=== PATIENT | female | born 1970 | race Caucasian/White ===

== ENCOUNTER 2017-02-16 17:32 | Emergency (ER) | payer OTHER ==
[2017-02-16 17:56] VITALS: RESP 16
[2017-02-16] MEDS ORDERED: TDAP ADULT 0.5 ML INJ (BOOSTRIX) IM ONE (17:57)
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
[2017-02-16 20:22] VITALS: BP 119/78; PULSE 65; TEMP 97.7; O2SAT 96
== END 2017-02-16 20:21 | disposition home or self-care (01) ==
DX: S52.124A Nondisplaced fracture of head of right radius, initial encounter for closed fracture (principal); V28.4XXA Motorcycle driver injured in noncollision transport accident in traffic accident, initial encounter; Y92.410 Unspecified street and highway as the place of occurrence of the external cause; Y99.8 Other external cause status; Y93.89 Activity, other specified
CPT/HCPCS: A4565